=== PATIENT | male | born 1950 | race Two or more races ===

== ENCOUNTER 2024-11-16 13:13 | Emergency (ER) | payer MEDICARE, MEDICAID, SELFPAY ==
[2024-11-16] VITALS (7 sets, daily range): BP systolic 83–115; BP diastolic 51–82; PULSE 76–93; RESP 16–20; TEMP 35.8–37.2; O2SAT 94–98; BMI 26.8
--- NOTE | 2024-11-16 13:47 | PD.EDLOWEX ---
Lower Extremity Injury RME/HPI General Chief Complaint: Fall Stated Complaint: LEFT KNEE PAIN AFTER GROUND LEVEL FALL Time Seen by Provider: 11/16/24 13:24 Arrival date/time: 11/16/24 13:13 RME / HPI RME / HPI Narrative: 74 year old male presents to the ED [facility] for evaluation of left knee and left hip pain following a ground-level fall that occurred yesterday. The patient reports he was getting socks out of his drawer and while reaching for the bottom drawer he suddenly had a room spinning dizziness sensation that caused him to fall. Unsure if he hit his head. Immediately following the fall, has had pain in both the left knee and left hip, which has prevented him from getting up or walking. He describes the pain as aching and rates 8/10. Pain is exacerbated with any movement of the left lower extremity, including repositioning. Per the medics report, the [place] and had to [place]. Patient denies neck/back pain. There is no reported numbness, tingling, or weakness in the lower extremities. Related Data Home Medications ?Medication ?Instructions ?Recorded ?Confirmed carvedilol 25 mg tablet 25 mg PO BIDWM 02/07/23 03/23/23 albuterol sulfate 90 mcg/actuation 1 puff inhalation Q4H PRN 03/08/23 03/23/23 aerosol inhaler shortness of breath or wheezing budesonide-formoterol HFA 160 2 puff inhalation BID 03/08/23 03/23/23 mcg-4.5 mcg/actuation aerosol inhaler (Symbicort) sacubitril 24 mg-valsartan 26 mg 1 tab PO BID 03/08/23 03/23/23 tablet (Entresto) spironolactone 25 mg tablet 25 mg PO QDAY 03/08/23 03/23/23 Held on 03/24/23. Instructions: Resume on 03/28/23. See PCP budesonide-formoterol HFA 160 2 puff inhalation BID 03/23/23 03/23/23 mcg-4.5 mcg/actuation aerosol inhaler (Symbicort) furosemide 40 mg tablet 40 mg PO QDAY 03/23/23 03/23/23 Held on 03/24/23. Instructions: Resume on 03/28/23. See PCP Previous Rx's ?Medication ?Instructions ?Recorded apixaban 2.5 mg tablet (Eliquis) 5 mg (2 x 2.5 mg) PO BID 30 days 03/10/23 #120 tabs aspirin 81 mg tablet,delayed 81 mg PO QDAY 30 days #30 tabs 03/10/23 release atorvastatin 80 mg tablet 80 mg PO QPM #30 tabs 03/10/23 Allergies Allergy/AdvReac Type Severity Reaction Status Date / Time vancomycin Allergy Intermediate Hives Verified 11/16/24 13:47 avocado Allergy Mild Hives Verified 11/16/24 13:47 Review of Systems Review of Systems Narrative Review of Systems: Gen: No fever, no chills EYES: No discharge, no pain HEENT: No ear pain, no congestion, no sore throat PULM: no shortness of breath, no cough, no congestion CV: No chest pain, no palpitations, no chest tightness GI: No nausea, no vomiting, no diarrhea, no pain, no constipation : No frequency, no urgency,? no dysuria Musc/skel: No joint pain, no back pain, +left knee and left hip pain Skin: No rash, no ecchymosis, no lesions Neuro: No weakness, no headache Past Medical History Past Medical History CARDIAC: Positive Cardiac Disorders, Atrial Fibrillation, Peripheral Vascular Disease, Hypercholesterolemia, Congestive Heart Failure and Hypertension RESPIRATORY: Positive Chronic Obstructive Pulmonary Disease (COPD) (smoker) and Pneumonia GASTROINTESTINAL: Positive Hepatitis MUSCULOSKELETAL: Positive Musculoskeletal Disorders HEMATOLOGIC: Positive Anemia PSYCHO/SOCIAL: Positive Recreational Drug Use OTHER HISTORY: Positive Hospitalization and Falls Family History FAMILY HISTORY: Negative Family Neurologic Problems, Family Psychiatric Problems, Family Respiratory Disorders, Family Cardiac Disorders, Family Gastrointestinal Problems, Family Cancer, Family Surgery or Family Anesthesia Reaction Surgical History SURGICAL: Positive Oral Surgery, Tonsillectomy, Adenoidectomy and Vasectomy Social History SMOKING STATUS: Current every day smoker SUBSTANCE USE: methamphetamine (smokes) ED Exam Narrative Physical exam: GENERAL APPEARANCE: AxOx4, unkempt, nontoxic appearing HEENT: NC, AT. MM dry. EOMI, clear conjunctiva, oropharynx clear. Poor dentition. NECK: Supple without lymphadenopathy. No stiffness or restricted ROM. HEART: Normal rate and regular rhythm, normal S1/S1, no m/r/g LUNGS: CTAB, moving air well. No crackles or wheezes are heard. ABDOMEN: Soft, RLQ pain, no pulsatile mass, nondistended with good bowel sounds heard. BACK: No midline C/T/L spine pain or deformity, No CVAT, no obvious deformity. EXTREMITIES: Pain with ROM of the left leg, held in flexed and externally rotated position, without cyanosis, clubbing or edema. NEUROLOGICAL: Grossly nonfocal. Alert and oriented, moving all 4 extremities. CN not formally tested but appear grossly intact. Skin: Warm and dry without any rash. Course Course Course Narrative: PCP prescribed diuretics due to mild kidney injury. Patient is advised to cut back from taking diuretics twice a day, to once per day for the next 2 days. Quality Measures none Orders Category Date Time Status Bedside Blood Glucose NOW Care 11/16/24 14:[address] Screening NOW Care 11/16/24 16:52 Active [place] to Ruth Routine Care 11/16/24 15:20 Ordered Consult to Nephrology Stat Cons 11/16/24 17:[address] angio abdomen pelvis Stat Exams 11/16/24 16:[address] cervical spine wo con Stat Exams 11/16/24 14:[address] head/brain wo con Stat Exams 11/16/24 14:[address] hip LT wo con Stat Exams 11/16/24 14:52 Completed XR chest 1V Stat Exams 11/16/24 13:58 Completed XR hip LT w pelvis 2-3V Stat Exams 11/16/24 14:09 Completed XR knee limited LT 2V Stat Exams 11/16/24 14:09 Completed CBC Stat Lab 11/16/24 13:58 Completed CMP [Comprehensive Metabolic Panel] Stat Lab 11/16/24 13:58 Completed Creatine Kinase Stat Lab 11/16/24 13:58 Completed Hemoglobin and Hematocrit Stat Lab 11/16/24 16:29 Completed Lactate (Lactic Acid) Stat Lab 11/16/24 13:58 Completed Lactic Acid, 3 HR Stat Lab 11/16/24 17:07 Ordered Partial Thromboplastin Time Stat Lab 11/16/24 13:58 Completed Procalcitonin Stat Lab 11/16/24 13:58 Completed Prothrombin Time with INR Stat Lab 11/16/24 13:58 Completed Troponin I Stat Lab 11/16/24 13:58 Completed Type and Screen Stat Lab 11/16/24 16:15 Completed Urinalysis Stat Lab 11/16/24 13:58 Ordered HYDROmorphone INJ [Dilaudid Inj] Med 11/16/24 14:14 Discontinued 0.5 mg IVP X1 ONE HYDROmorphone INJ [Dilaudid Inj] Med 11/16/24 17:26 Discontinued 0.5 mg IVP X1 ONE Morphine Inj Med 11/16/24 13:30 Discontinued 4 mg IVP X1 ONE Sodium Chloride 0.9% 1000 ml [Ns] 1,000 ml Med 11/16/24 13:30 Discontinued IV 999 mls/hr Sodium Chloride 0.9% 1000 ml [Ns] 1,000 ml Med 11/16/24 15:11 Discontinued IV 999 mls/hr Sodium Chloride 0.9% 1000 ml [Ns] 1,000 ml Med 11/16/24 17:26 Active IV 999 mls/hr Sodium Chloride 0.9% 500 ml [Ns] 500 ml Med 11/16/24 14:51 Discontinued IV 999 mls/hr Vital Signs Vital signs: Vital Signs Temperature 96.5 F L 11/16/24 14:00 Pulse Rate 81 11/16/24 14:00 Respiratory Rate 18 11/16/24 14:00 Blood Pressure 83/51 L 11/16/24 14:00 Pulse Oximetry (%) 96 11/16/24 14:00 Oxygen Delivery Method Room Air 11/16/24 14:00 Extremity Injury, Lower MDM Narrative MDM Narrative:: Molly Vasquez am scribing for and in the presence of Dr. Toussaint. 1530: Images reviewed with Radiology. No intracranial hemorrhaging noted, will look at read. Should patient have a brain bleed, they should be transferred out. Images will be sent to Dr. Coleman, the orthopedist, for further evaluation. 1800: Care signed out to Dr. Campos. Past medical, surgical, social and family history reviewed. Vitals and home medications reviewed. Results and treatment plan discussed. They will assume the care of the patient at this time and will follow the patient, pending Angio CT results, reevaluation, and final disposition. Patient data External records reviewed:: [facility] previous records (I reviewed admission from 03/23-03/24/2024 ) and EMS form Clinical information provided by:: patient and EMS Social determinants that could affect healthcare access:: none Patient has the following chronic illnesses:: Atrial fibrillation, s/p pacemaker, COPD How is presenting disease/condition affected by chronic disease/condition?: exacerbated by Evaluation data The following diagnostics were reviewed and interpreted by me:: lab results and radiology exam(s) (I reviewed and interpreted the left hip xray at bedside, there is a femoral neck fracture. ) Lab and/or radiology exams considered but not ordered:: None Interpretation Summary: RADIOLOGY Patient: HUBER FARLEY. Record#: [id number] Birthdate: 1950 Age/Sex: 74 / M Examination:Left hip AP, lateral, AP pelvis 3 views Technique: Hip AP lateral, AP pelvis, 3 views Exam date and time:November 16, 2024 1429 hours INDICATIONS: Ground-level fall today with injury to the left hip, left hip pain. FINDINGS: Rotated images Left femoral neck fracture Severe osteopenia Bones the pelvis intact IMPRESSION: Limited study Left femoral neck fracture. Dictated By: Bishnu Akbar MD Signed By: Electronically signed by Bishnu Akbar MD in [place] 11/16/24 1435 Examination: Left knee 2 views Exam date and time: November 16, 2024 1419 hours INDICATIONS: Ground-level fall today with injury to the knee, knee pain. FINDINGS: Moderate to advanced narrowing medial joint space Prominent osteopenia No fracture or dislocation IMPRESSION: No fracture or dislocation Dictated By: Bishnu Akbar MD Signed By: Electronically signed by Bishnu Akbar MD in [place] 11/16/24 1440 Examination: CT brain head without contrast. Date and time of exam:November 16, 2024 1507 hours Comparison March 23, 2023 INDICATIONS: Ground-level fall today head today, head pain Findings: No significant ventricular enlargement. Intra-axial or extra-axial hemorrhage density is not seen. No mass effect or midline shift Basal cisterns are not remarkable. Fourth ventricle is midline. Cranial vault intact. Old infarct left cerebellar hemisphere Impression: Negative for acute hemorrhage, mass effect or midline shift Dictated By: Bishnu Akbar MD Signed By: Electronically signed by Bishnu Akbar MD in [place] 11/16/24 1528 Examination: CT cervical spine without contrast Exam date and time:November 16, 2024 1507 hours INDICATIONS: Patient fell today with into the neck, neck pain Findings: Axial sections demonstrate intact base of the skull. C1 exhibit satisfactory relationship to the odontoid. No acute cervical vertebral body fracture seen. Alignment posterior spinous processes satisfactory. Impression:No acute cervical fracture. Dictated By: Bishnu Akbar MD Signed By: Electronically signed by Bishnu Akbar MD in [place] 11/16/24 1530 Examination:CT left hip, without contrast. CT pelvis without intravenous contrast Date and time of exam:November 16, 2024 1511 hrs. Indications: Patient fell today with injury to left hip, left hip pain Findings: Infrarenal abdominal aortic aneurysm AP dimension 6.9 cm, mediolateral dimension 7.3 cm, grossly intact on this noncontrast study Bladder intact Acute displaced left femoral neck fracture Right hip intact Bones of the pelvis intact Impression: Infrarenal abdominal aortic aneurysm partly visualized, AP dimension 6.9 cm mediolateral dimension 7.3 cm, appearing grossly intact on this noncontrast study CTA abdomen pelvis follow-up postcontrast, would best assess full extent of this aneurysm Acute displaced left femoral neck fracture Dictated By: Bishnu Akbar MD Signed By: Electronically signed by Bishnu Akbar MD in [place] 11/16/24 1643 Medications / Prescriptions Medications or Prescriptions considered but not ordered:: None Medication administrations:: Medication Administration History Sodium Chloride (Ns) 1,000 mls @ 999 mls/hr IV .Q1H1M ONE Stop: 11/16/24 18:26 Last Admin: 11/16/24 17:36 Dose: 999 mls/hr Documented By: ABIMAEL Discontinued Medications Hydromorphone HCl (Hydromorphone Inj 2 Mg/Ml Vial) 0.5 mg IVP X1 ONE Stop: 11/16/24 14:15 Last Admin: 11/16/24 14:48 Dose: 0.5 mg Documented By: RAMON Hydromorphone HCl (Hydromorphone Inj 2 Mg/Ml Vial) 0.5 mg IVP X1 ONE Stop: 11/16/24 17:27 Last Admin: 11/16/24 17:35 Dose: 0.5 mg Documented By: ABIMAEL Sodium Chloride (Ns) 1,000 mls @ 999 mls/hr IV .Q1H1M ONE Stop: 11/16/24 14:30 Last Infusion: 11/16/24 14:41 Dose: Infused Documented By: Admin: 11/16/24 14:00 Dose: 999 mls/hr Documented By: ABIMAEL Sodium Chloride (Ns) 500 mls @ 999 mls/hr IV .Q31M ONE Stop: 11/16/24 15:21 Last Admin: 11/16/24 15:34 Dose: Not Given Documented By: ABIMAEL Non-Admin Reason: Discontinued Sodium Chloride (Ns) 1,000 mls @ 999 mls/hr IV .Q1H1M ONE Stop: 11/16/24 16:11 Last Infusion: 11/16/24 16:36 Dose: Infused Documented By: Admin: 11/16/24 15:31 Dose: 999 mls/hr Documented By: RAMON Morphine Sulfate (Morphine Sulf Inj 10 Mg/Ml Vial) 4 mg IVP X1 ONE Stop: 11/16/24 13:31 Last Admin: 11/16/24 15:36 Dose: Not Given Documented By: ABIMAEL Non-Admin Reason: Vital Signs Comments: bp low See above Consultations Consultation(s) initiated? (list below): Yes Consultation #1 (Physician, Specialty, Details): Dr. Coleman, orthopedist, made aware of the patient?s HPI, PMHx, lab and/or radiology results. Discussed treatment plan. Will consult an admission to the hospitalist. Time: 16:10 Consultation #2 (Physician, Specialty, Details): Consult with Dr. Barlow, neurologist. Dr. Barlow states go ahead with angio fluids before and after. Dr. Barlow will consult here if patient is stable and will monitor renal function and decide what to do from there. Will transfer if any complications found. Time: 17:11 Diagnosis Extremity Injury, Lower Differential Diagnosis: acute internal derangement of knee, fracture of hip and other (knee fracture, knee dislocation) Most likely diagnosis given after review of the tests above:: Ground-level fall, acute kidney injury, left hip fracture. Admission Indicated Admission indicated?: indicated Admission Request Was there a request for admission?: Yes Admission Attestation Admission request attestation: Discussed case with [] from Hospitalist service regarding admission. Discussed patients ED course, exam findings, labs, and radiology results. The Hospitalist [agrees,declines] to accept the patient for admission. Disposition Plan Disposition Plan: Admit Discharge Plan Plan Patient Disposition: Admit Acute Care w/in Hospital Prescriptions/Referrals Prescriptions/Med Rec: No Action carvedilol 25 mg tablet 25 mg PO BIDWM Patient Comments: TAKE 1 TABLET BY MOUTH TWICE A DAY WITH FOOD budesonide-formoterol [Symbicort] 160-4.5 mcg/actuation Hfa Aerosol Inhaler 2 puff INHALATION BID Entresto 24-26 mg Tablet 1 tab PO BID spironolactone 25 mg tablet 25 mg PO QDAY Patient Comments: TAKE 1 TABLET BY MOUTH EVERY DAY albuterol sulfate 90 mcg/actuation HFA aerosol inhaler 1 puff INHALATION Q4H PRN (Reason: shortness of breath or wheezing ) Patient Comments: INHALE 1 PUFF BY MOUTH EVERY 4 HOURS NEEDED FOR SHORTNESS OF BREATH OR WHEEZING FOR 1 MONTH Eliquis 2.5 mg Tablet 5 mg PO BID 30 Days Qty: 120 3RF aspirin 81 mg Tablet,Delayed Release (Dr/Ec) 81 mg PO QDAY 30 Days Qty: 30 3RF atorvastatin 80 mg tablet 80 mg PO QPM Qty: 30 0RF furosemide 40 mg tablet 40 mg PO QDAY Patient Comments: TAKE 1 TABLET BY MOUTH EVERY DAY budesonide-formoterol [Symbicort] 160-4.5 mcg/actuation HFA aerosol inhaler 2 puff INHALATION BID Patient Comments: INHALE 2 PUFFS BY MOUTH TWICE A DAY FOR 1 MONTH Referrals: No Primary/Family,Physician [Primary Care Provider] - In 1 week Problem List Clinical Impression: Fall from ground level, Acute kidney injury, Fracture of left hip Patient/Caregiver Discharge Instructions Print Language: Danish
--- NOTE | 2024-11-16 13:58 | XR_ITS ---
Examination: AP chest single view Technique one AP portable semiupright chest single view Exam date and time: November 16, 2024 1545 hrs. Indications: Ground-level fall today with injury to the chest Findings: Bilateral moderate enlargement cardiac contour Cardiac leads satisfactory position. No pneumothorax Prominent osteopenia Impression: No pneumothorax or hemothorax
[2024-11-16] MEDS: SODIUM CHLORIDE 0.9% 1000 ML 1,000 ML 999 ML IV ×3 (14:00→17:36)
--- NOTE | 2024-11-16 14:02 | XR_ITS ---
Examination: CT brain head without contrast. 2-D sagittal coronal reconstructions Date and time of exam:November 16, 2024 1507 hours Comparison March 23, 2023 INDICATIONS: Ground-level fall today head today, head pain CTDI: vol (mGy):53.5 DLP: (mGycm):1129 Technique: Multiple CT axial sections of the brain have been obtained, 5 mm slice thickness. Contrast has not been administered. 2-D sagittal, coronal reconstructions have been obtained Low dose protocols were performed. One or more of the following dose reduction techniques were used; automated exposure control, adjustment of the mA and/or KV according to patient size, use of iterative reconstruction technique. Findings: No significant ventricular enlargement. Intra-axial or extra-axial hemorrhage density is not seen. No mass effect or midline shift Basal cisterns are not remarkable. Fourth ventricle is midline. Cranial vault intact. Old infarct left cerebellar hemisphere Impression: Negative for acute hemorrhage, mass effect or midline shift
--- NOTE | 2024-11-16 14:02 | XR_ITS ---
Examination: CT cervical spine without contrast 2-D sagittal reconstructions 2-D coronal reconstructions 3-D reconstructions. Exam date and time:November 16, 2024 1507 hours INDICATIONS: Patient fell today with into the neck, neck pain CTDI:vol (mGy) 9.03 DLP: (mGycm) 212 Technique: Multiple 2 mm axial sections of the cervical spine have been obtained. The coronal and sagittal reconstructions have been obtained. 3-D reconstructions have been obtained. Low dose protocols were performed. One or more of the following dose reduction techniques were used; automated exposure control, adjustment of the mA and/or KV according to patient size, use of iterative reconstruction technique. Findings: Axial sections demonstrate intact base of the skull. C1 exhibit satisfactory relationship to the odontoid. No acute cervical vertebral body fracture seen. Alignment posterior spinous processes satisfactory. Impression: No acute cervical fracture.
--- NOTE | 2024-11-16 14:09 | XR_ITS ---
Examination: Left knee 2 views Technique one AP lateral left knee 2 views Exam date and time: November 16, 2024 1419 hours INDICATIONS: Ground-level fall today with injury to the knee, knee pain. FINDINGS: Moderate to advanced narrowing medial joint space Prominent osteopenia No fracture or dislocation IMPRESSION: No fracture or dislocation
--- NOTE | 2024-11-16 14:09 | XR_ITS ---
Examination:Left hip AP, lateral, AP pelvis 3 views Technique: Hip AP lateral, AP pelvis, 3 views Exam date and time:November 16, 2024 1429 hours INDICATIONS: Ground-level fall today with injury to the left hip, left hip pain. FINDINGS: Rotated images Left femoral neck fracture Severe osteopenia Bones the pelvis intact IMPRESSION: Limited study Left femoral neck fracture.
[2024-11-16 14:13] LABS: Lactate (Lactic Acid) 3.3 mMol/L (0.4-2.0)
[2024-11-16 14:16] LABS: Basophils % (Auto) 0 % (0-2.5); Eosinophils # (Auto) 0.1 Thou/mm3 (0.0-0.5); Eosinophils % (Auto) 1 % (0-10); Hemoglobin 12.9 g/dL (13.5-16.0); Immature Granulocytes % (Auto) 1 % (0-0); Lymphocytes # (Auto) 0.8 Thou/mm3 (1.0-4.8); Lymphocytes % (Auto) 6 % (10-50); Mean Corpuscular HGB Conc 33.9 g/dl (31.0-37.0); Mean Corpuscular Hemoglobin 31.7 pg (25.0-35.0); Mean Corpuscular Volume 93 fL (80-100); Monocytes # (Auto) 1.4 Thou/mm3 (0.0-0.8); Monocytes % (Auto) 11 % (0-12); Neutrophils # (Auto) 9.6 Thou/mm3 (1.8-7.7); Neutrophils % (Auto) 81 % (37-80); Nucleated Red Blood Cell % 0 /100 WBC (0); Platelet Count 156 Thou/mm3 (140-440); RDW Standard Deviation 45.4 fL (35.1-43.9); Red Blood Count 4.07 Miln/mm3 (4.50-5.90)
[2024-11-16 14:32] LABS: INR 1.1 (0.9-1.3); Partial Thromboplastin Time 26.9 Seconds (22.0-36.0); Prothrombin Time 11.7 Seconds (9.0-12.2)
[2024-11-16 14:43] LABS: Alanine Aminotransferase 16 U/L (10-49); Albumin, Serum 3.8 gm/dL (3.4-4.8); Albumin/Globulin Ratio 1.2 (1.2-2.2); Alkaline Phosphatase 158 U/L (46-116); Anion Gap 13 (7-16); Aspartate Amino Transferase 46 U/L (0-34); BUN/Creatinine Ratio 13 Ratio (12-20); Blood Urea Nitrogen 70 mg/dL (9-23); Calcium 8.5 mg/dL (8.3-10.6); Calcium (Corrected) 8.7 mg/dL (8.5-10.1); Carbon Dioxide 20.8 mMol/L (20.0-31.0); Chloride 99 mMol/L (98-107); Creatinine (Component) 5.3 mg/dL (0.6-1.3); Estimated Creatinine Clearance 13.8 mL/min (>60); Globulin 3.1 gm/dL (2.3-3.5); Glucose 92 mg/dL (74-106); Osmolality,Calculated 286 (275-295); Potassium 4.1 mMol/L (3.4-5.1); Procalcitonin 0.65 ng/ml (0.0-0.49); Sodium 133 mMol/L (136-145); Total Protein 6.9 gm/dL (5.7-8.2); Troponin I 0.021 ng/mL (0.0-0.045); eGFR 11 See Note
[2024-11-16] MEDS: HYDROmorphone INJ 2 MG/ML VIAL 0.5 MG IVP ×2 (14:48→17:35)
--- NOTE | 2024-11-16 14:52 | XR_ITS ---
Examination: CT left hip, without contrast. CT pelvis without intravenous contrast 2-D sagittal reconstructions. 2-D coronal reconstructions. 3-D reconstructions. Date and time of exam:November 16, 2024 1511 hrs. Indications: Patient fell today with injury to left hip, left hip pain CTDI: vol (mGy):11.6 DLP: (mGycm):157 Technique: Multiple 1.25 mm axial sections of the pelvis left hip have been obtained. 2-D sagittal and coronal reconstructions have been obtained. 3-D reconstructions have been obtained. Low dose protocols were performed. One or more of the following dose reduction techniques were used; automated exposure control, adjustment of the mA and/or KV according to patient size, use of iterative reconstruction technique. Findings: Infrarenal abdominal aortic aneurysm AP dimension 6.9 cm, mediolateral dimension 7.3 cm, grossly intact on this noncontrast study Bladder intact Acute displaced left femoral neck fracture Right hip intact Bones of the pelvis intact Impression: Infrarenal abdominal aortic aneurysm partly visualized, AP dimension 6.9 cm mediolateral dimension 7.3 cm, appearing grossly intact on this noncontrast study CTA abdomen pelvis follow-up postcontrast, would best assess full extent of this aneurysm Acute displaced left femoral neck fracture
[2024-11-16 16:01] LABS: Creatine Kinase 2772 U/L (34-171)
[2024-11-16 16:35] LABS: Hematocrit 37.3 % (41.0-53.0); Hemoglobin 12.6 g/dL (13.5-16.0)
--- NOTE | 2024-11-16 16:45 | PC.NURSE ---
PER DR. OGYAL, PT OKAY TO PROCEED WITH CTA.
--- NOTE | 2024-11-16 16:52 | XR_ITS ---
Examination: CTA abdomen, with intravenous contrast. CTA pelvis, with intravenous contrast. 2-D sagittal and coronal reconstructions. 3-D reconstructions. Date and time of exam: November 16, 2024 1714 hrs. Indications: Patient fell today with injury to the head, head fracture, hypertension, infrarenal abdominal aortic aneurysm on the noncontrast CT pelvis study today CTDI vol (mgy) 11.8 DLP (MGycm) 691 Technique: Multiple CTA images, 2.0 mm slice thickness, obtained abdomen, pelvis, with the high-resolution 64 slice scanner. 100 cc [id number]-[id number] is administered intravenously. Sagittal and coronal 2-D reconstructions are obtained. 3-D reconstructions, angiographic images are obtained. 3-D postprocessing, including vascular maximum intensity projections. Low dose protocols were performed. One or more of the following dose reduction techniques were used; automated exposure control, adjustment of the mA and/or KV according to patient size, use of iterative reconstruction technique. Findings: Atelectasis and/or pneumonia left base Liver irregular in contour Multiple gallstones Spleen not enlarged No pancreatic mass 20 mm left adrenal nodule Atrophic kidneys with renal parenchymal scar formation There is an infrarenal abdominal aortic aneurysm AP dimension 6.9 cm mediolateral dimension 7.3 cm, cephalad caudad dimension 12 cm Contrast only opacifies a very small portion of the right lateral margin of the infrarenal aortic aneurysm, AP dimension 29 mm, mediolateral dimension 18 mm Contrast enters into patent iliac arteries Left femoral neck fracture again noted bladder intact Impression: Infrarenal abdominal aortic aneurysm, AP dimension 6.9 cm, mediolateral dimension 7.3 cm, cephalad caudad dimension 12 cm Most of the infrarenal abdominal aortic aneurysm demonstrates chronic thrombus with only a very small unopacified lumen AP dimension 29 mm mediolateral dimension 18 mm, this contrast opacified lumen of the aneurysm does fill into the iliac arteries No kay extravasation of contrast from the aneurysm into the abdomen or pelvis Given the extensive thrombus in the infrarenal aortic aneurysm and the size of the aneurysm, recommend urgent cardiovascular consultation
[2024-11-16 17:07] LABS: Reflex Lactate? Y
[2024-11-16 17:52] LABS: Lactic Acid, 3 HR 2.6 mMol/L (0.4-2.0)
--- NOTE | 2024-11-16 17:59 | PD.EDADDENDU ---
Emergency Room Addendum <Vicenta Zafar - Last Filed: 11/16/24 20:27> Addendum Narrative: I took over the care from previous shift physician at 6 PM on 11/16/2024.? See previous notes for complete H & P and ED course.?? I reviewed all diagnostic test results. My interpretation of the EKG is? My interpretation of the chest x-ray is My review of the CT report is? Blood tests and urine tests? Diagnoses include: Left hip fracture, acute kidney injury, and ground-level fall. Treatment here included? Not yet done: I discussed the case with our hospitalist.? About the presentation and exam and diagnostics and treatments here.? And need of further care in the hospital.? Will accept the patient. Not yet done: Based on my best medical judgment, made decision no further evaluation or treatment indicated at this time.? Patient understands and agrees to the discharge instructions customized and printed, see below. Librado Campos MD 1814: Dr. Coleman, Orthopedist, evaluated patient and wants to admit patient here. 1818: Spoke with Dr. Morales, [employer] Board Member. Dr. Vásquez states it is ok to admit patient here. 1922: [facility]?declined due to 1937:? 2002: Spoke with [facility]. Vascular will look at history and call back. 2020: Dr. Frey will discuss with other transfers and will call us back. 2025: Vascular accepted, but needs to be discussed with Orthopedist. #Acute kidney injury on chronic kidney disease stage III #Non-anion gap metabolic acidosis #A-fib, with history of RVR #HFrEF (EF 30%) #History of Abdominal Aortic Aneurysm and Renal Mass #COPD on Home O2 #Polysubstance use disorder <Librado Campos MD - Last Filed: 11/16/24 20:34> Addendum Narrative: I took over the care from previous shift physician, Dr. Toussaint, at 6 PM on 11/16/2024.? See previous notes for complete H & P and ED course.?? I reviewed all diagnostic test results. Diagnoses include: Left hip fracture, acute kidney injury, 7.3 cm AAA, rhabdomyolysis. Treatment here included?IV fluid and morphine and Dilaudid. Patient remained stable. I discussed the case with our orthopedic surgeon and our counter sales representative and our hospitalist.? About the presentation and exam and diagnostics and treatments here.? And need of further care in the hospital.? Declined to accept the patient. Recommended transfer for vascular service due to 7 point centimeter AAA. I discussed the case with Dr. Frey ([facility]).? About the presentation and exam and diagnostics and treatments here.? And need of further care there.? Will accept the patient. Librado Campos MD
--- NOTE | 2024-11-16 18:06 | PD.ORTHCON ---
HPI Consult details Reason for consultation narrative: Pain in the left hip History of present illness: Patient fell yesterday by history and has not been able to ambulate since then. He was brought to the emergency room by ambulance. Primary complaint left hip. Not complain of any pain in his neck lumbar spine No complaints of pain shoulders elbows wrist hands or fingers No complaints pain right lower extremity. Pain confined to the left lower extremity Past Medical History Past Medical History NEUROLOGIC: Negative Neurological Disorders, Cerebrovascular Accident, Transient Ischemic Attacks (TIA), Dementia, Alzheimer's Disease, Parkinson's Disease, Brain Tumor, Meningitis, Seizures, Epilepsy, Multiple Sclerosis, Cerebral Palsy, Amyotrophic Lateral Sclerosis (ALS/Antionette Gehrig's), Guillain-[place] Syndrome, Spina Bifida, Paralysis, Peripheral Neuropathy, Gunter's Palsy, Subdural Hematoma, Migraine, Head Trauma, Spinal Cord Injury or Traumatic Brain Injury CARDIAC: Positive Cardiac Disorders, Atrial Fibrillation, Peripheral Vascular Disease, Hypercholesterolemia, Congestive Heart Failure and Hypertension; Negative Myocardial Infarction, Cardiac Arrhythmia, Angina, Heart Murmur, Coronary Artery Disease, Atherosclerotic Heart Disease, Aneurysm, Congenital Heart Disease, Valvular Heart Disease, Rheumatic Fever, Cardiomyopathy, Edema, Pericarditis, Cellulitis, Deep Vein Thrombosis, Hypotension or Varicose Veins RESPIRATORY: Positive Chronic Obstructive Pulmonary Disease (COPD) (smoker) and Pneumonia; Negative Asthma, Bronchitis, Emphysema, Pulmonary Fibrosis, Cystic Fibrosis, Tuberculosis, Pulmonary Embolism, Pulmonary Edema or Sleep Apnea GASTROINTESTINAL: Positive Hepatitis; Negative Gastrointestinal Disorders, Cirrhosis, Pancreatitis, Celiac Disease, Gall Bladder Disease, Gastrointestinal Bleed, Esophageal Varices, [place]'s Esophagus, Colitis, Ulcerative Colitis, Diverticulitis, Diverticulosis, Ulcer, Colorectal Cancer, Irritable Bowel, Crohn's Disease, Obstructive Bowel, Hiatal Hernia, Hemorrhoids, Gastroesophageal Reflux Disease or Obesity GENITOURINARY: Negative Genitourinary Disorders, Renal Disease, Kidney Stones, Polycystic Kidney Disease, Neurogenic Bladder, Inguinal Hernia, Dialysis, Prostate Cancer or Benign Prostatic Hyperplasia REPRODUCTIVE: Negative Breast Cancer, Genital Herpes, Gonorrhea, Syphilis or Testicular Cancer MUSCULOSKELETAL: Positive Musculoskeletal Disorders; Negative Muscular Dystrophy, Myasthenia Gravis, Marfan's Syndrome, Bone Cancer, Arthritis, Rheumatoid Arthritis, Osteoporosis, Degenerative Disk Disease, Gout, Scoliosis, Carpal Tunnel Syndrome, Fibromyalgia, Fractures, Degenerative Joint Disease, Osteomyelitis or Poliovirus ENT: Negative Cataracts, Glaucoma, Blind, Retinal Detachment, Macular Degeneration, Ear Infection, Deafness, Head Trauma or Eye Prosthesis ENDOCRINE: Negative Endocrine Disorders, Diabetes Mellitus Type 1, Diabetes Mellitus Type 2, Hypoglycemia, Quintin's Syndrome, [place]'s Disease, Hyperthyroidism, Hypothyroidism, Parathyroid Disease, Pituitary Disease, Systemic Lupus Erythematosus, Syndrome of Inappropriate Antidiuretic Hormone (SIADH), Adrenal Disease or Graves' Disease HEMATOLOGIC: Positive Anemia; Negative Blood Disorders, Leukemia, Hemophilia, Thalassemia, Sickle Cell Disease or Clotting Problems PSYCHO/SOCIAL: Positive Recreational Drug Use; Negative Psychiatric Problems, Schizophrenia, Bipolar Disorder, Depression, Anxiety, Behavior Problems, Self-Mutilation, Attention Deficit Disorder, Attention Deficit Hyperactivity Disorder, Depression, Post Traumatic Stress Disorder or Eating Disorder OTHER HISTORY: Positive Hospitalization and Falls; Negative Autoimmune Disease, Down Syndrome, Autism, Developmental Delay, Shingles, Blood Transfusions, Anesthesia Reactions, Organ Transplant, Chemotherapy, Radiation Therapy, Hyperbaric Therapy, MRSA, VRSA, Vancomycin-Resistant Enterococci, Human Immunodeficiency Virus (HIV), Chicken Pox, Measles, Mumps, Rubella ([place] Measles), Pertussis, Clostridium Difficile, Cancer, Breast Cancer, Cervical Cancer, Colorectal Cancer, Lung Cancer, Ovarian Cancer, Prostate Cancer or Testicular Cancer Family History FAMILY HISTORY: Negative Family Neurologic Problems, Family Psychiatric Problems, Family Respiratory Disorders, Family Cardiac Disorders, Family Gastrointestinal Problems, Family Cancer, Family Surgery or Family Anesthesia Reaction Surgical History SURGICAL: Positive Oral Surgery, Tonsillectomy, Adenoidectomy and Vasectomy; Negative Cardiac Surgery, Open Heart Surgery, Coronary Artery Bypass Graft, Valve Replacement, Vascular Surgery, Coronary Stent, Cardiac Catheterization, Pacemaker, Angiogram, Auto Implanted Cardiovert Defib, Carotid Endarterectomy, Endocrine Surgery, Thyroidectomy, Ear Surgery, Tympanostomy Tube, Eye Surgery, Nose Surgery, Cochlear Implant, Corneal Transplant, Throat Surgery, Abdominal Surgery, Tracheostomy, Gastric Bypass Surgery, Gastrostomy, Bowel Surgery, Nephrectomy, Transurethral Resection, Joint Replacement, Amputation, Open Reduction Internal Fixation, Arthroscopy, Neurologic Surgery, Brain Shunt, Mastectomy, Lumpectomy, Hysterectomy, Tubal Ligation, Section or Organ Transplant Social History SMOKING STATUS: Current every day smoker SUBSTANCE USE: methamphetamine (smokes) Meds Home Medications and Allergies Home Medications ?Medication ?Instructions ?Recorded ?Confirmed ?Type carvedilol 25 mg tablet 25 mg PO BIDWM 02/07/23 03/23/23 History albuterol sulfate 90 mcg/actuation 1 puff inhalation Q4H PRN 03/08/23 03/23/23 History aerosol inhaler shortness of breath or wheezing budesonide-formoterol HFA 160 2 puff inhalation BID 03/08/23 03/23/23 History mcg-4.5 mcg/actuation aerosol inhaler (Symbicort) sacubitril 24 mg-valsartan 26 mg 1 tab PO BID 03/08/23 03/23/23 History tablet (Entresto) spironolactone 25 mg tablet 25 mg PO QDAY 03/08/23 03/23/23 History Held on 03/24/23. Instructions: Resume on 03/28/23. See PCP budesonide-formoterol HFA 160 2 puff inhalation BID 03/23/23 03/23/23 History mcg-4.5 mcg/actuation aerosol inhaler (Symbicort) furosemide 40 mg tablet 40 mg PO QDAY 03/23/23 03/23/23 History Held on 03/24/23. Instructions: Resume on 03/28/23. See PCP Allergies Allergy/AdvReac Type Severity Reaction Status Date / Time vancomycin Allergy Intermediate Hives Verified 11/16/24 13:47 avocado Allergy Mild Hives Verified 11/16/24 13:47 Exam Vital Signs Temp Pulse Resp BP Pulse Ox O2 Del Method 98.0 F 93 20 83/65 L 96 Room Air 11/16/24 18:00 11/16/24 18:00 11/16/24 18:00 11/16/24 18:00 11/16/24 18:00 11/16/24 18:00 Blood pressure 83/65 Narrative Exam Patient is alert and oriented. Describes his fall as consequence of dizziness. Does have pacemaker. Able to turn head [id number]. Responds appropriately. Partially edentulous. No pain to palpation shoulders elbows wrist hands fingers Is able to lift arms up without pain No chest wall pain abdomen obese distended costal bladder quite distended. Review of the lower extremity shows left lower extremity shortened externally rotated no effusion of either knee joint Feet are cool. Unable to palpate DP PT pulses. Does have some brawny edema Results - Ortho Labs 11/16/24 16:29 11/16/24 13:58 Labs: Short CBC 04/18/25 04/18/25 Range/Units 13:58 16:29 WBC 12.0 H (3.8-10.6) Thou/mm3 Hgb 12.9 L 12.6 L (13.5-16.0) g/dL Hct 38.0 L 37.3 L (41.0-53.0) % Plt Count 156 (140-440) Thou/mm3 BMP 11/16/24 13:58 Sodium 133 L Potassium 4.1 Chloride 99 Carbon Dioxide 20.8 BUN 70 H Creatinine 5.3 H* Glucose 92 Calcium 8.5 Cardiac Enzymes 11/16/24 Range/Units 13:58 Total Creatine Kinase 2772 H (34-171) U/L Troponin I 0.021 (0.0-0.045) ng/mL Liver Function 11/16/24 Range/Units 13:58 Total Bilirubin 1.0 (0.3-1.2) mg/dL AST 46 H (0-34) U/L ALT 16 (10-49) U/L Alkaline Phosphatase 158 H (46-116) U/L Albumin 3.8 (3.4-4.8) gm/dL Hemoglobin 12.9, creatinine 5.3 BUN 70 Assessment & Plan Additional Assessment Additional comments: Left femoral neck fracture with some displacement. Multiple medical problems including history of methamphetamine use. Still uses. Still smokes. Presently appears to be acute renal failure to me. Has pacemaker. Presently hypotensive. History of systolic ejection fraction between 20 and 25. Plan Need cardiology consult and nephrology consult. Needs catheter. He may be a candidate for hemiarthroplasty right now is sent. Will follow with you folks.
--- NOTE | 2024-11-16 18:57 | PC.CM ---
0020-Received call from Dr. Campos requesting transfer to be initiated to vascular surgery and orthopedics. Transfer packet created and requested imaging on CD from radiology department Ashish. Transfer packet sent via XM fax to [facility], [facility], and [facility]. ER CN Praveen informed and packet left with him to continue transfer at this time.
[2024-11-16 19:19] LABS: Collection Type, Urine Clean Catch; Squamous Epithelial Cell,Urine 0 /hpf (0-5)
--- NOTE | 2024-11-16 19:28 | PC.NURSE ---
1919 RECEIVED CALL FROM [facility] TRANSFER NURSE. DR GAMING SPEAKING WITH HER AT THIS TIME.
[2024-11-16 19:52] LABS: Bilirubin,Urine Negative (Negative); Blood,Urine 2+ (Negative); Clarity,Urine Clear (Clear/Hazy); Color,Urine Yellow (Lt Yel-Yel); Glucose, Urine Negative (Negative); Hyaline Casts,Urine < 1 /hpf (0-1); Ketones,Urine Negative (Negative); Leukocyte Esterase,Urine Negative (Negative); Nitrite,Urine Negative (Negative); PH,Urine 5.5 (5.0-7.0); Protein,Urine Trace (Neg - Trace); RBC,Urine 1 /hpf (0-3); Specific Gravity,Urine 1.016 (1.001-1.035); Urobilinogen,Urine Negative mg/dL (0.0-1.0); WBC,Urine 1 /hpf (0-5)
--- NOTE | 2024-11-16 20:03 | PC.NURSE ---
2003, ON THE PHONE WITH FRANCOIS AT THIS TIME
--- NOTE | 2024-11-16 20:24 | PC.NURSE ---
2023 DR GAMING ON PHONE WITH DR PEREZ WITH [facility] AT THIS TIME.
--- NOTE | 2024-11-16 21:35 | PC.NURSE ---
[address] PEREZ TO [facility], REPORT TO [phone].
[2024-11-16] MEDS: HYDROmorphone INJ 2 MG/ML VIAL 1 MG IVP (22:33)
--- NOTE | 2024-11-16 22:42 | PC.NURSE ---
CALLED REPORT TO FRANCOIS SOLORZANO AND SPOKE TO SRUTHI NEWBY, ALL QUESTIONS ANSWERED.
== END 2024-11-16 22:35 | disposition short-term general hospital (02) ==
PROVIDERS: Emergency Medicine; Emergency Provider Emergency Medicine
DX: S72.002A Fracture of unspecified part of neck of left femur, initial encounter for closed fracture (principal); M25.562 Pain in left knee; W18.30XA Fall on same level, unspecified, initial encounter; N17.9 Acute kidney failure, unspecified; N18.32 Chronic kidney disease, stage 3b; I48.91 Unspecified atrial fibrillation; E87.20 Acidosis, unspecified; J44.9 Chronic obstructive pulmonary disease, unspecified; Z99.81 Dependence on supplemental oxygen; F19.90 Other psychoactive substance use, unspecified, uncomplicated; I50.20 Unspecified systolic (congestive) heart failure; R51.9 Headache, unspecified; I71.43 Infrarenal abdominal aortic aneurysm, without rupture; M54.2 Cervicalgia
CPT/HCPCS: 51702; 36415; 70450; 71045; 72125; 73502; 73560; 73700; 74174; 80053; 81001; 82550; 83605; 84145; 84484; 85014; 85018; 85025; 85610; 85730; 86850; 86900; 86901; 96361; 96374; 99285; A4649; J3490; J7030; Q9967